=== PATIENT | female | born 1990 | race Hispanic/Latino ===

== ENCOUNTER → 2024-04-29 | Day surgery (SDC) | payer OTHER ==
[~2024-04-29] MED LIST: ACETAMINOPHEN325 M1 PO; ASCORBIC ACID500 MG PO; CEFPODOXIME PR200 MG PO; DICYCLOMINE HCL10 MG PO; FAMOTIDINE20 MG PO; FEOSOL325 MG PO; LEVOFLOXACIN250 MG PO; LEVOTHYROXINE100 MC2 PO; LIDOCAINE HCL 2% LOCAL INJ 5 ML SDV VIAL INJ ONE; METRONIDAZOLE500 MG PO; MIDAZOLAM HCL 2 MG/2 ML VIAL ONE; MOTRIN200 MG PO; MOUNJARO7.5 MG/0.5 SC; ONDANSETRON ODT4 MG PO; PROPOFOL IV EMULSION 10 MG/ML 20 ML VIAL ONE; SEMGLEE (Y100 UNIT/2 SC; ULTRAM 50MG50 MG PO
[2024-04-29] MEDS: LACTATED RINGER'S 1,000 ML ONE (06:28)
[2024-04-29 08:32] VITALS: TEMP 97.6
[2024-04-29 08:47] VITALS: BP 128/83; PULSE 82; RESP 14; O2SAT 99
== END | disposition home or self-care (01) ==
LOC: OR 05:55
PROVIDERS: ATTEND Internal Medicine Gastroenterology
DX: K57.92 Diverticulitis of intestine, part unspecified, without perforation or abscess without bleeding (principal); D12.8 Benign neoplasm of rectum; K64.8 Other hemorrhoids; E11.9 Type 2 diabetes mellitus without complications; E03.9 Hypothyroidism, unspecified; E66.01 Morbid (severe) obesity due to excess calories; Z88.2 Allergy status to sulfonamides; Z01.810 Encounter for preprocedural cardiovascular examination; Z79.4 Long term (current) use of insulin; Z79.85 Long-term (current) use of injectable non-insulin antidiabetic drugs; Z79.899 Other long term (current) drug therapy
CPT/HCPCS: 36415; 45380; 84702; 93005; J2001; J2250; J2704; J7121; 45378